=== PATIENT | female | born 1995 | race Caucasian/White ===

== ENCOUNTER 2019-11-03 10:05 | Emergency (ER) | payer OTHER ==
[~2019-11-03] VITALS: Ht 154.9 cm; Wt 64.0 kg
[2019-11-03] MEDS ORDERED: IV NORMAL SALINE 1,000ML 1,000 ML IV SCH (10:24)
--- NOTE | 2019-11-03 10:27 | PHYS DOC ---
Adult General Chief Complaint Chief Complaint: NAUSEA/VOMITING/[facility] HPI Patient is a 24-year-old female who presents with complaint of 2 day history of nausea with vomiting and diarrhea. Patient states that she has not had any issues with morning sickness and believes this is more than likely a stomach bug. She states that she has been having difficulty with keeping anything down. She states the diarrhea started last night and has tapered off today. She denies any chest pain or shortness breath. She denies any lower abdominal pain, cramping or vaginal bleeding.[] Review of Systems Review of Systems Constitutional: Denies fever or chills [] Respiratory: Denies cough or shortness of breath [] Cardiovascular: No additional information not addressed in HPI [] GI: Denies abdominal pain.. Complains of nausea with vomiting and r diarrhea [] : Denies dysuria or hematuria [] Neurologic: Denies headache, focal weakness or sensory changes [] All other systems were reviewed and found to be within normal limits, except as documented in this note. Physical Exam Physical Exam Constitutional: Well developed, well nourished, no acute distress, non-toxic appearance. [] HENT: Normocephalic, atraumatic, bilateral external ears normal, oropharynx moist, no oral exudates, nose normal. [] Eyes: PERRLA, EOMI, conjunctiva normal, no discharge. [] Neck: Normal range of motion, no tenderness, supple, no stridor. [] Cardiovascular: Regular rate and rhythm[] Lungs & Thorax: Bilateral breath sounds clear to auscultation [] Abdomen: Bowel sounds normal, soft, no tenderness. [] Skin: Warm, dry, no erythema, no rash. [] Extremities: No tenderness, no cyanosis, no clubbing, ROM intact. [] Neurologic: Alert and oriented X 3, no focal deficits noted. [] EKG EKG [] Radiology/Procedures Radiology/Procedures [] Course & Med Decision Making Course & Med Decision Making Pertinent Labs and Imaging studies reviewed. (See chart for details) [] Dragon Disclaimer Dragon Disclaimer This electronic medical record was generated, in whole or in part, using a voice recognition dictation system. Departure Departure: Impression: Primary Impression: Gastroenteritis Disposition: 01 HOME, SELF-CARE Condition: STABLE Referrals: RUT LAIRD (PCP) Patient Instructions: Viral Gastroenteritis Scripts Ondansetron (ONDANSETRON ODT) 4 Mg Tab.rapdis 1 TAB PO PRN Q6-8HRS PRN for NAUSEA, #12 TAB Prov: AMADO FAITH Jr. DO 11/03/19 AMADO FAITH Jr. DO Nov 03, 2019 10:27
[2019-11-03] MEDS ORDERED: ONDANSETRON PF 4 MG/2 ML VIAL. IVP ONE (10:30)
[2019-11-03 10:41] LABS: BASO % 0 % (0-3); EOS % 1 % (0-3); HEMATOCRIT 37.1 % (36.0-47.0); HEMOGLOBIN 12.4 g/dL (12.0-15.5); LYMPH % 18 % (24-48); MEAN CORPUSCULAR HEMOGLOBIN 30 pg (25-35); MEAN CORPUSCULAR HGB CONC 34 g/dL (31-37); MEAN CORPUSCULAR VOLUME 89 fL (79-100); MONO # 0.7 x10^3/uL (0.0-1.1); MONO % 12 % (0-9); NEUT # 3.9 x10^3uL (1.8-7.7); NEUT % 69 % (31-73); PLATELET COUNT 258 x10^3/uL (140-400); RED BLOOD COUNT 4.17 x10^6/uL (3.50-5.40); RED CELL DISTRIBUTION WIDTH 13.5 % (11.5-14.5); WHITE BLOOD COUNT 5.7 x10^3/uL (4.0-11.0)
[2019-11-03 10:54] LABS: CALCIUM 8.8 mg/dL (8.5-10.1); CREATININE 0.6 mg/dL (0.6-1.0); GFR 121.8; POTASSIUM 3.5 mmol/L (3.5-5.1)
[2019-11-03 11:00] LABS: ALBUMIN/GLOBULIN RATIO 0.8 (1.0-1.7); TOTAL BILIRUBIN 0.1 mg/dL (0.2-1.0); TOTAL PROTEIN 6.9 g/dL (6.4-8.2)
[2019-11-03 12:27] LABS: BILIRUBIN,URINE NEG (NEG); CLARITY,URINE HAZY; COLOR,URINE YELLOW; GLUCOSE,URINE NEG (NEG)
[2019-11-03 12:28] LABS: BACTERIA,URINE MOD /HPF (0-FEW); NITRITE,URINE NEG (NEG); RBC,URINE OCC /HPF (0-2); SQUAMOUS EPITHELIAL CELL,UR FEW /LPF; UROBILINOGEN,URINE 0.2 mg/dL (0.2 mg/dL)
[2019-11-03 12:33] VITALS: BP 109/65
[2019-11-03] MEDS ORDERED: ONDA4TAB12 PO (12:52)
== END 2019-11-03 13:03 | disposition home or self-care (01) ==
LOC: ER 10:05
DX: K52.9 Noninfective gastroenteritis and colitis, unspecified (principal)
CPT/HCPCS: 36415; 80053; 81001; 83690; 85025; 87086; 96361; 96374; 99283; J2405; J7030

== ENCOUNTER 2021-11-18 09:10 | Emergency (ER) | payer OTHER ==
[~2021-11-18] VITALS: Ht 154.9 cm; Wt 64.0 kg
[~2021-11-18 09:10] MED LIST: ONDA4TAB12 PO
[2021-11-18] MEDS: IV NORMAL SALINE 1,000ML 1,000 ML IV ONE (09:54)
[2021-11-18] MEDS: ACETAMINOPHEN 500 MG TABLET PO ONE (09:55)
[2021-11-18] MEDS: ASPIRIN CHEWABLE 81 MG TABLET. PO ONE (09:55)
[2021-11-18 10:10] LABS: BASO % 1 % (0-3); EOS # 0.2 x10^3/uL (0.0-0.7); EOS % 3 % (0-3); LYMPH # 1.1 x10^3/uL (1.0-4.8); LYMPH % 19 % (24-48); MEAN CORPUSCULAR HEMOGLOBIN 30 pg (25-35); MEAN CORPUSCULAR HGB CONC 33 g/dL (31-37); MEAN CORPUSCULAR VOLUME 90 fL (79-100); MONO # 0.6 x10^3/uL (0.0-1.1); MONO % 10 % (0-9); NEUT % 67 % (31-73); PLATELET COUNT 299 x10^3/uL (140-400); RED BLOOD COUNT 4.35 x10^6/uL (3.50-5.40); RED CELL DISTRIBUTION WIDTH 14.8 % (11.5-14.5); WHITE BLOOD COUNT 5.9 x10^3/uL (4.0-11.0)
[2021-11-18 10:11] LABS: CREATININE 0.7 mg/dL (0.6-1.0); GFR 100.4; POTASSIUM 4.8 mmol/L (3.5-5.1)
--- NOTE | 2021-11-18 10:17 | EKG ---
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
[2021-11-18 10:23] LABS: ALBUMIN 3.8 g/dL (3.4-5.0); ALBUMIN/GLOBULIN RATIO 1.2 (1.0-1.7); TOTAL BILIRUBIN 0.3 mg/dL (0.2-1.0)
--- NOTE | 2021-11-18 10:25 | RAD ---
XR CHEST 1V Clinical Indication: Reason: Left sided chest pain x 2 days / Spl. Instructions: / History: Comparison: None. Findings: The cardiomediastinal silhouette is normal. Lungs are clear. There is no pneumothorax. No pleural eff usion is appreciated. No acute bone abnormality. IMPRESSION: No acute cardiopulmonary process. Electronically signed by: Andrea Velazquez MD (11/18/2021 10:22 AM) [id number]
[2021-11-18 10:28] LABS: BACTERIA,URINE 0 /HPF (0-FEW); CLARITY,URINE CLEAR; COLOR,URINE YELLOW; GLUCOSE,URINE NEG (NEG); NITRITE,URINE NEG (NEG); RBC,URINE 0 /HPF (0-2); SQUAMOUS EPITHELIAL CELL,UR OCC /LPF; UROBILINOGEN,URINE 0.2 mg/dL (0.2 mg/dL); WBC,URINE 0 /HPF (0-4)
[2021-11-18 10:29] LABS: U PREG PATIENT NEGATIVE (NEG)
[2021-11-18] MEDS: SUMAtriptan SUCC 6 MG/0.5 ML VIAL SQ ONE (10:39)
[2021-11-18] MEDS ORDERED: IBUP600T16 PO (11:41)
--- NOTE | 2021-11-18 11:42 | PHYS DOC ---
Past History Past Medical History: No Pertinent History Additional Past Medical Histor: A.D.D.; low ferritin; insomnia; RLS Past Surgical History: Appendectomy, Other Additional Past Surgical Histo: foot surgery Alcohol Use: Occasionally Adult General Chief Complaint Chief Complaint: CHEST PAIN HPI HPI The patient is a 26-year-old female who presents for evaluation of sharp, focal leftsided chest discomfort anteriorly, localizing just above her left breast, with onset yesterday and continuing today. Discomfort is nonexertional and somewhat pleuritic. She has some associated achy discomfort to the left arm at times, although not now. Discomfort does not otherwise radiate. Associated mild gradual onset bilateral frontal headache. No associated fevers, nausea or vomiting, upper respiratory congestion/rhinorrhea, cough, sore throat, shortness of breath, abdominal pain of any kind, flank pain, midline back pain, dysuria, hematuria, polyuria or oliguria, pain or swelling to arms or legs, changes in bowel habits. Patient got the Moderna COVID vaccination 2 days ago. Patient is alert and pleasantly appropriately interactive and in no acute distress with appropriate vital signs upon initial evaluation here in the emergency department. Review of Systems Review of Systems A 12 point review of systems was completed and was negative except where noted in HPI above. Current Medications Current Medications Current Medications Medications (Trade) Dose Ordered Sig/Romaine Start Time Stop Time Status Last Admin Dose Admin Acetaminophen (Tylenol) 1,000 mg 1X ONCE 11/18/21 09:45 11/18/21 10:00 DC 11/18/21 09:55 1,000 MG Aspirin (Aspirin Chewable) 324 mg 1X ONCE 11/18/21 09:45 11/18/21 10:00 DC 11/18/21 09:55 324 MG Sodium Chloride 1,000 ml @ 1,000 mls/hr 1X ONCE 11/18/21 09:45 11/18/21 10:44 DC 11/18/21 09:54 1,000 MLS/HR Sumatriptan Succinate (Imitrex) 6 mg 1X ONCE 11/18/21 09:45 11/18/21 10:00 DC 11/18/21 10:39 6 MG Allergies Allergies Allergies Coded Allergies Type Severity Reaction Last Updated Verified No Known Drug Allergies 11/18/21 No Physical Exam Physical Exam 26-year-old female appearing nontoxic and in no acute distress. Head is normocephalic and atraumatic. Neck is supple and nontender. Oropharynx is moist. Lungs are clear to auscultation at all stations. There is a normal S1 and S2 without rubs or gallops and capillary refill is appropriate, less than 2 seconds globally. Abdomen is soft, nontender and nondistended. Skin is warm and dry without cyanosis, clubbing or edema. Psychiatrically, the patient demonstrates appropriate mood and affect and is alert. Evaluation of the extremities reveals BUEs and BLEs neurovascularly intact distally with strength out of 5, sensation intact, hands and feet warm and well-perfused. No dependent peripheral edema distally. No calf tenderness or swelling bilaterally. Homans test is negative bilaterally. Current Patient Data Vital Signs Vital Signs Date Time Temp Pulse Resp B/P (MAP) Pulse Ox O2 Delivery O2 Flow Rate FiO2 11/18/21 10:23 87 18 119/69 (86) 100 Room Air 11/18/21 09:20 98.2 Lab Results Laboratory Tests Test 11/18/21 09:45 11/18/21 09:50 White Blood Count 5.9 x10^3/uL (4.0-11.0) Red Blood Count 4.35 x10^6/uL (3.50-5.40) Hemoglobin 13.0 g/dL (12.0-15.5) Hematocrit 39.0 % (36.0-47.0) Mean Corpuscular Volume 90 fL (79-100) Mean Corpuscular Hemoglobin 30 pg (25-35) Mean Corpuscular Hemoglobin Concent 33 g/dL (31-37) Red Cell Distribution Width 14.8 % (11.5-14.5) H Platelet Count 299 x10^3/uL (140-400) Neutrophils (%) (Auto) 67 % (31-73) Lymphocytes (%) (Auto) 19 % (24-48) L Monocytes (%) (Auto) 10 % (0-9) H Eosinophils (%) (Auto) 3 % (0-3) Basophils (%) (Auto) 1 % (0-3) Neutrophils # (Auto) 4.0 x10^3uL (1.8-7.7) Lymphocytes # (Auto) 1.1 x10^3/uL (1.0-4.8) Monocytes # (Auto) 0.6 x10^3/uL (0.0-1.1) Eosinophils # (Auto) 0.2 x10^3/uL (0.0-0.7) Basophils # (Auto) 0.0 x10^3/uL (0.0-0.2) Prothrombin Time 11.3 SEC (9.4-11.4) Prothrombin Time INR 1.1 (0.9-1.1) Activated Partial Thromboplast Time 27 SEC (23-33) D-Dimer (Yenny) 0.22 mg/L (0.00-0.50) Sodium Level 141 mmol/L (136-145) Potassium Level 4.8 mmol/L (3.5-5.1) Chloride Level 108 mmol/L (98-107) H Carbon Dioxide Level 27 mmol/L (21-32) Anion Gap 6 (6-14) Blood Urea Nitrogen 8 mg/dL (7-20) Creatinine 0.7 mg/dL (0.6-1.0) Estimated GFR (Cockcroft-Gault) 100.4 BUN/Creatinine Ratio 11 (6-20) Glucose Level 90 mg/dL (70-99) Calcium Level 9.0 mg/dL (8.5-10.1) Total Bilirubin 0.3 mg/dL (0.2-1.0) Aspartate Amino Transferase (AST) 11 U/L (15-37) L Alanine Aminotransferase (ALT) 17 U/L (14-59) Alkaline Phosphatase 51 U/L (46-116) Troponin I High Sensitivity 12 ng/L (4-50) IH-Xng-N-Type Natriuretic Peptide 44 pg/mL (0-124) Total Protein 7.0 g/dL (6.4-8.2) Albumin 3.8 g/dL (3.4-5.0) Albumin/Globulin Ratio 1.2 (1.0-1.7) Urine Collection Type Void Urine Color Yellow Urine Clarity Clear Urine pH 8.0 Urine Specific [place] 1.025 Urine Protein Neg (NEG-TRACE) Urine Glucose (UA) Neg mg/dL (NEG) Urine Ketones (Stick) Neg mg/dL (NEG) Urine Blood Neg (NEG) Urine Nitrite Neg (NEG) Urine Bilirubin Neg (NEG) Urine Urobilinogen Dipstick 0.2 mg/dL (0.2 mg/dL) Urine Leukocyte Esterase Neg (NEG) Urine RBC 0 /HPF (0-2) Urine WBC 0 /HPF (0-4) Urine Squamous Epithelial Cells Occ /LPF Urine Bacteria 0 /HPF (0-FEW) Urine Mucus Slight /LPF Urine Test Negative (NEG) EKG EKG Sinus rhythm, rate 93, no acute ST elevation or depression, CT 138, QRS 88, QTc 423, EP interpretation. Nonischemic tracing, intervals appropriate. Radiology/Procedures Radiology/Procedures XR CHEST 1V Clinical Indication: Reason: Left sided chest pain x 2 days / Spl. Instructions: / History: Comparison: None. Findings: The cardiomediastinal silhouette is normal. Lungs are clear. There is no pneumothorax. No pleural effusion is appreciated. No acute bone abnormality. IMPRESSION: No acute cardiopulmonary process. Electronically signed by: Andrea Velazquez MD (11/18/2021 10:22 AM) [id number] DICTATED AND SIGNED BY: ANDREA VELAZQUEZ MD DATE: 11/18/21 1018 CC: RUT LAIRD; ARIELLE LYLE MD ~MTH0 0 Heart Score C/O Chest Pain: Yes HEART Score for Chest Pain: HEART Score for Chest Pain Response (Comments) Value History Slighlty/Non-Suspicious 0 ECG Normal 0 Age < 45 0 Risk Factors 1 or 2 Risk Factors 1 Troponin < Normal Limit 0 Total 1 Risk Factors: Risk Factors: DM, Current or recent (<one month) smoker, HTN, HLP, family history of CAD, obesity. Risk Scores: Risk Factors: DM, Current or recent (<one month) smoker, HTN, HLP, family history of CAD, obesity. Course & Med Decision Making Course & Med Decision Making HEART score low risk at 1 (fam hx early CV disease is only RF). Wells low risk for pulmonary embolism and D-dimer is negative. Labs, EKG and chest x-ray are without evidence of acute process. Upon serial reassessments patient is resting comfortably. She states her headache is completely resolved and her chest discomfort is much improved and only minimally present now. No evidence of emergency condition has been identified. Will discharge home with a course of anti-inflammatory medication and instructions to follow-up very closely with primary care in the next 2 to 4 days. Will also refer to cardiology at [facility] for close follow-up of an ED visit for chest pain. Patient understands that if she feels worse instead of better or develops other new symptoms of concern that she will need to return to the emergency department immediately for reevaluation. All questions are answered. Dragon Disclaimer [place] Disclaimer This electronic medical record was generated, in whole or in part, using a voice recognition dictation system. Departure Departure: Impression: Primary Impression: Other chest pain Disposition: HOME / SELF CARE / HOMELESS Condition: IMPROVED Referrals: ANGEL MASON DO, MPH (PCP) JONATHAN FERNANDES MD Patient Instructions: Chest Pain (Nonspecific) Additional Instructions: Follow-up very closely with your primary care doctor in the office in the next 2 to 4 days for reevaluation of your symptoms and a discussion of next best steps in care. Take a 600 mg ibuprofen pill every 6 hours as needed for discomfort. Take with food to prevent stomach upset. We are also referring you to cardiology (the [facility]) for an ED follow-up visit for chest pain. Please call to make an appointment to be seen and let the nurse clinician know that you need an ED follow-up appointment. They will take care of the rest. Return to the emergency department right away for worsening symptoms of any kind or with any other new symptoms of concern. Scripts Ibuprofen (IBUPROFEN) 600 Mg Tablet 600 MG PO QID PRN for PAIN, #24 TAB Prov: ARIELLE LYLE MD 11/18/21 ARIELLE LYLE MD Nov 18, 2021 11:42
[2021-11-18 12:15] VITALS: BP 103/35
== END 2021-11-18 12:15 | disposition home or self-care (01) ==
LOC: ER 09:10
DX: R07.89 Other chest pain (principal); R51.9 Headache, unspecified
CPT/HCPCS: 36415; 71045; 80053; 81001; 81025; 83880; 84484; 85025; 85379; 85610; 85730; 93005; 96360; 96372; 99285; J3030; J7030